=== PATIENT | female | born 1995 | race Caucasian/White ===

== ENCOUNTER → 2016-10-06 | Outpatient (CLI) | payer MEDICAID ==
--- NOTE | 2016-10-06 16:14 | Diagnostic Imaging Report ---
EXAMINATION: OB ultrasound. INDICATION: survey. FINDINGS: There is a single intrauterine . heart rate is 143 beats per minutes. The placenta is posterior. There is no placenta previa. anatomic evaluation demonstrates unremarkable appearance of the posterior fossa. No ventriculomegaly. No hydronephrosis or cystic mass in the kidneys. The stomach and bladder appear unremarkable. Suggestion of two umbilical arteries seen around the bladder suggestive of three-vessel cord is noted. The spine appear unremarkable. The cord insertion is abutting a limb with no definite abnormality. The four-chamber view is not well seen due to position. The growth parameters are: Biparietal diameter: 25 weeks 6 days Head circumference: 25 weeks 3 days Abdominal circumference: 26 weeks 3 days Femur length: 27 weeks 2 days These average at: 26 weeks and 2 days. The head circumference is at 2.7 standard deviations less than the gestational age of 27 weeks and 4 days based on provided [place] of 01/01/2017, reportedly based on an outside first trimester ultrasound. The biparietal diameter is at 1.9 standard deviations below the gestational age. IMPRESSION: 1. Followup within 1-2 weeks is recommended to reevaluate the cord insertion and the four-chamber view. 2. The head circumference measurement is at 2.7 standard deviations below the provided gestational age. Dictated by: Dictated on workstation # [id number]
== END ==
LOC: RAD 13:54
PROVIDERS: ATTEND Family Medicine
DX: O09.32 Supervision of pregnancy with insufficient antenatal care, second trimester (principal); Z3A.26 26 weeks gestation of pregnancy
CPT/HCPCS: 76805

== ENCOUNTER → 2016-11-10 | Outpatient (CLI) | payer MEDICAID ==
--- NOTE | 2016-11-10 15:35 | Diagnostic Imaging Report ---
INDICATION: Evaluation of the cord insertion and four-chamber view, not well seen on the previous exam. TECHNIQUE: Multiple real-time grayscale images were obtained over the gravid uterus. COMPARISON: 10/06/16. FINDINGS: The heart rate is 127 beats per minute. The placenta is posterior. No placenta previa. The amniotic fluid index is 8.5 cm. The four-chamber view is not well seen due to position. The cord insertion is probably normal, although adjacent limbs do not allow good evaluation. Biometrical measurements are as follows: Biparietal 7.7 cm, age 31 weeks 0 days, at -1.5 standard deviation. Head circumference 28.1 cm, age 30 weeks 6 days, at -2.4 standard deviation compared to the mean for the gestational age. This compares to -2.9 standard deviation of the head circumference measurements on 10/06/16. Abdominal circumference 27.4 cm, age 31 weeks 4 days, at 0.9 standard deviation below the mean. Femur length 6.3 cm, age 32 weeks 4 days, at 0.4 standard deviation below the mean. Sonographic estimated age: 31 weeks 4 days. Compared to gestational age of 32 weeks and 4 days based on [place] of 01/01/2017. Sonographic estimated date of delivery: 01/08/17. Estimated Weight: 1811 gm (+/- 264 gm). LMP percentile: 16%. heart rate: 127 beats per minute. number: 1 of 1. IMPRESSION: 1. Four-chamber view and cord insertion are still not well seen due to position and other factors including of relatively low normal amounts of amniotic fluid and advanced age. Reevaluation ultrasound could be considered to attempt better visualization. 2. The head circumference is at 2.4 standard deviations below the mean. Dictated by: Dictated on workstation # [id number]
== END ==
LOC: RAD 14:27
PROVIDERS: ATTEND Family Medicine
DX: Z34.83 Encounter for supervision of other normal pregnancy, third trimester (principal)
CPT/HCPCS: 76816

== ENCOUNTER → 2016-11-12 | Outpatient (CLI) | payer MEDICAID ==
--- NOTE | 2016-11-12 11:53 | Diagnostic Imaging Report ---
INDICATION: Decreased movements. COMPARISON: ultrasound 11/10/2016. DISCUSSION: Transabdominal sonographic evaluation of the gravid uterus was performed. Single live intrauterine is again demonstrated. Normal breathing, movement, posture and tone, and and normal amniotic fluid index for a normal biophysical profile score of 8/8. Amniotic fluid index measures 8.8 cm. presentation cephalic. heart rate measures 140 beats per minute. Placenta is located posteriorly with no placenta previa. IMPRESSION: 1. Normal biophysical profile score of 8/8. Dictated by: Dictated on workstation # [id number]
[2016-11-12 13:05] VITALS: BP 102/67
== END ==
LOC: RAD 11:05
PROVIDERS: ATTEND Family Medicine
DX: O36.8130 Decreased fetal movements, third trimester, not applicable or unspecified (principal); Z3A.00 Weeks of gestation of pregnancy not specified
CPT/HCPCS: 76819

== ENCOUNTER 2016-12-17 17:54 | Outpatient (CLI) | payer MEDICAID ==
[~2016-12-17] VITALS: Ht 170.2 cm; Wt 84.4 kg
[2016-12-17 18:20] VITALS: BP 102/65
--- NOTE | 2016-12-20 13:57 | Physician Query-Final Dx ---
CARLIE BURNETTE 12/20/16 1357: Clinic Account Progress/Dx Physician Query: Please give diagnosis Date of Service Dec 17, 2016 at 17:54 ASHLYN MCLEOD MD 12/24/16 1141: Clinic Account Progress/Dx DIAGNOSIS: Diagnosis 37 weeks gestation Leaking fluid, negative testing for rupture CARLIE BURNETTE Dec 20, 2016 13:57 ASHLYN MCLEOD MD Dec 24, 2016 11:41
== END 2016-12-17 19:00 | disposition home or self-care (01) ==
LOC: WSo 17:54 → LDRP 17:54 → WSo 19:00
PROVIDERS: ATTEND Family Medicine
DX: Z34.83 Encounter for supervision of other normal pregnancy, third trimester (principal); Z3A.37 37 weeks gestation of pregnancy
CPT/HCPCS: 99214

== ENCOUNTER 2016-12-23 19:37 | Outpatient (CLI) | payer MEDICAID ==
[~2016-12-23] VITALS: Ht 170.2 cm; Wt 85.3 kg
[2016-12-23 20:04] VITALS: BP 110/72
[2016-12-23 20:36] LABS: BILIRUBIN,URINE NEGATIVE (NEGATIVE); KETONES,URINE NEGATIVE (NEGATIVE); LEUKOCYTE ESTERASE ,URINE 2+ (NEGATIVE); NITRITE,URINE NEGATIVE (NEGATIVE); PH,URINE 6.5 (5-9); PROTEIN,URINE 2+ (NEGATIVE); UROBILINOGEN,URINE 1 MG/DL (NORMAL)
[2016-12-23] MEDS ORDERED: PREN-37 PO (20:47)
[2016-12-23 20:52] LABS: SQUAMOUS EPITHELIAL CELL,UR 25-50 /HPF
[2016-12-23] MEDS ORDERED: ACETAMINOPHEN 500 MG TAB (TYLENOL) PO ONE (21:45)
[2016-12-23] MEDS ORDERED: D5 LR IV SOLUTION 1,000 ML IV ONE (21:45)
--- NOTE | 2016-12-24 10:16 | Physician Query-Final Dx ---
CARLIE BURNETTE 12/24/16 1016: Clinic Account Progress/Dx Physician Query: Please give diagnosis Date of Service Dec 23, 2016 at 19:37 FABIENNE BAUTISTA MD 12/28/16 0739: Clinic Account Progress/Dx DIAGNOSIS: Diagnosis 1. IUP at 38 weeks, non labor 2. Uterine irritability CARLIE BURNETTE Dec 24, 2016 10:16 FABIENNE BAUTISTA MD Dec 28, 2016 07:39
== END 2016-12-23 23:15 | disposition home or self-care (01) ==
LOC: LDRP 19:37 → WSo 19:37
PROVIDERS: ATTEND Family Medicine
DX: O99.89 Other specified diseases and conditions complicating pregnancy, childbirth and the puerperium (principal); N85.8 Other specified noninflammatory disorders of uterus; Z3A.38 38 weeks gestation of pregnancy
CPT/HCPCS: 81000; 87088; 96360; 99214

== ENCOUNTER 2016-12-26 23:40 | Outpatient (CLI) | payer MEDICAID ==
[~2016-12-26] VITALS: Ht 170.2 cm; Wt 87.5 kg
[~2016-12-26 23:40] MED LIST: PREN-37 PO
[2016-12-26 23:56] VITALS: BP 117/68
--- NOTE | 2016-12-27 13:10 | Physician Query-Final Dx ---
CARLIE BURNETTE 12/27/16 1310: Clinic Account Progress/Dx Physician Query: Please give diagnosis Date of Service Dec 26, 2016 at 23:40 BOB LOPEZ MD 12/27/16 1908: Clinic Account Progress/Dx DIAGNOSIS: Diagnosis Term 39 week gestation Contractions YOMAIRACARLIE Dec 27, 2016 13:10 BOB LOPEZ MD Dec 27, 2016 19:08
== END 2016-12-27 01:27 | disposition home or self-care (01) ==
LOC: WSo 23:40 → LDRP 23:40 → WSo 12-27 01:27
PROVIDERS: ATTEND Family Medicine
DX: O47.1 False labor at or after 37 completed weeks of gestation (principal); Z3A.39 39 weeks gestation of pregnancy
CPT/HCPCS: 99214

== ENCOUNTER 2017-01-01 12:15 | Inpatient (IN) | payer MEDICAID ==
[2017-01-01] VITALS (25 sets, daily range): BP systolic 95–127; BP diastolic 51–87
[~2017-01-01] VITALS: Ht 170.2 cm; Wt 86.2 kg
[2017-01-01] MEDS ORDERED: D5 LR IV SOLUTION 1,000 ML IV ONE (12:23)
[2017-01-01] MEDS ORDERED: fentaNYL INJECTION 100 MCG/2 ML AMP IVP ONE (12:30)
[2017-01-01] MEDS ORDERED: D5 LR IV SOLUTION 1,000 ML IV SCH (12:40)
[2017-01-01] MEDS ORDERED: MINERAL OIL CONCENTRATE 99.9% 15 ML UDC TOP PRN (12:45)
[2017-01-01] MEDS ORDERED: SUFENTA 0.6MCG/ML BUPIVA 0.125 100 ML ONE (12:56)
[2017-01-01] MEDS ORDERED: LIDOCAINE PF 2% 5 ML (XYLOCAINE) VIAL ONE (13:03)
[2017-01-01] MEDS ORDERED: BUPIVACAINE 0.25% 30 ML (SENSORCAINE) VIAL ONE (13:03)
[2017-01-01 13:04] LABS: BASOPHILS % (AUTO) 0 % (0-10); EOSINOPHILS % (AUTO) 0 % (0-10); LYMPHOCYTES # (AUTO) 1.4 X 10^3 (1.0-4.0); LYMPHOCYTES % (AUTO) 7 % (12-44); MEAN CORPUSCULAR HEMOGLOBIN 28 PG (25-34); MEAN CORPUSCULAR HGB CONC 32 G/DL (32-36); MEAN CORPUSCULAR VOLUME 87 FL (80-99); MEAN PLATELET VOLUME 11.3 FL (7.4-10.4); MONOCYTES # (AUTO) 1.3 X 10^3 (0.0-1.0); MONOCYTES % (AUTO) 6 % (0-12); NEUTROPHILS # (AUTO) 18.4 X 10^3 (1.8-7.8); NEUTROPHILS % (AUTO) 87 % (42-75); PLATELET COUNT 222 10^3/uL (130-400); RED BLOOD COUNT 3.71 10^6/uL (4.35-5.85); RED CELL DISTRIBUTION WIDTH 12.7 % (10.0-14.5); WHITE BLOOD COUNT 21.1 10^3/uL (4.3-11.0)
[2017-01-01] MEDS ORDERED: fentaNYL INJECTION 100 MCG/2 ML AMP ONE (13:04)
[2017-01-01] MEDS ORDERED: LACTATED RINGERS 1,000 ML IV ONE ×2 (13:40)
[2017-01-01] MEDS ORDERED: NALOXONE 0.4 MG/ML 1 ML (NARCAN) VIAL IV PRN (13:45)
[2017-01-01] MEDS ORDERED: ONDANSETRON 4 MG/2 ML (SDV) Z0FRAN IV PRN (13:45)
[2017-01-01] MEDS ORDERED: EPIDURAL (SUFENTA 0.6MCG/ML BUPIVA 0.125%) 100 ML BAG EPI PRN (13:45)
[2017-01-01] MEDS ORDERED: CATHETER FLUSH 10 ML SYR IV SCH ×2 (14:00→22:00)
[2017-01-01] MEDS ORDERED: MEPIVACAINE (CARBOCAINE) 2% 50 ML VIAL ONE (14:10)
[2017-01-01] MEDS ORDERED: OXYTOCIN/NORMAL SALINE 500 ML IV ONE (14:10)
--- NOTE | 2017-01-01 14:16 | History & Physical-OB ---
OB - Chief Complaint & HPI Date/Time Date of Admission: Date of Admission: Jan 01, 2017 at 12:47 Time Seen by Provider: 14:10 Chief Complaint/History OB-Reason for Admission/Chief: Onset of Labor Hx : 2 Hx Para: 1 Expected Date of Delivery: Jan 10, 2017 Gestational Age in Weeks: 38 Gestational Age in Days: 4 Admission Nurse Assessment Rev: Yes History of Labs GBS negative Allergies and Home Medications Allergies Coded Allergies: No Known Drug Allergies (Unverified , 12/17/16) Home Medications Vit/Iron Fumarate/FA 1 Each Tablet, 1 EACH PO DAILY, (Reported) OB - History Hx of Present Care: Yes Ultrasounds: Normal mid trimester US Obstetrical Complications: None Medical Complications: None Patient Past Medical History no chronic medical problems OB - Admission Exam Physical Exam Date Seen by Provider: Jan 01, 2017 Time Seen by Provider: 14:10 HEENT: Moist Membranes Heart: Rhythm Normal Lungs: Clear Abdomen: Gravid Extremities: Normal Cervical Dilatation: 5cm (on admission) Effacement: 75% Station: -2 Membranes: Intact Accelerations: Accelerations Present Short Term Variability: Present Half-Way Variability: Average (6-25) Date/Time Contractions Began;: 0700 Intensity: Moderate Labs Laboratory Tests Test 01/01/17 12:55 Range/Units White Blood Count 21.1 H 4.3-11.0 10^3/uL Red Blood Count 3.71 L 4.35-5.85 10^6/uL Hemoglobin 10.5 L 11.5-16.0 G/DL Hematocrit 32 L 35-52 % Mean Corpuscular Volume 87 80-99 FL Mean Corpuscular Hemoglobin 28 25-34 PG Mean Corpuscular Hemoglobin Concent 32 32-36 G/DL Red Cell Distribution Width 12.7 10.0-14.5 % Platelet Count 222 130-400 10^3/uL Mean Platelet Volume 11.3 H 7.4-10.4 FL Neutrophils (%) (Auto) 87 H 42-75 % Lymphocytes (%) (Auto) 7 L 12-44 % Monocytes (%) (Auto) 6 0-12 % Eosinophils (%) (Auto) 0 0-10 % Basophils (%) (Auto) 0 0-10 % Neutrophils # (Auto) 18.4 H 1.8-7.8 X 10^3 Lymphocytes # (Auto) 1.4 1.0-4.0 X 10^3 Monocytes # (Auto) 1.3 H 0.0-1.0 X 10^3 Eosinophils # (Auto) 0.0 0.0-0.3 10^3/uL Basophils # (Auto) 0.0 0.0-0.1 10^3/uL OB - Assessment/Plan/Diagnosis Assessment Assessment: active labor (at 38w4d) Plan Plan: Other (labor management) Other Plan Patient desires epidural FABIENNE BAUTISTA MD Jan 01, 2017 14:16
[2017-01-01] MEDS ORDERED: OXYTOCIN/NORMAL SALINE 500 ML IV SCH (15:09)
--- NOTE | 2017-01-01 15:09 | OB Labor & Delivery Record ---
L&D History Date of Service Date of Service: Jan 01, 2017 History Expected Date of Delivery: Jan 10, 2017 Gestational Age in Weeks: 38 Hx : 2 Hx Para: 1 Complications Events: Routine care Operative Indications (Cesarea: N/A-Vaginal Delivery Intrapartal Events: None L&D Stage1 Stage One Onset of Labor - Date: Jan 01, 2017 Onset of Labor - Time: 07:00 Monitors and Tracing Monitor Mode: External Monitor Accelerations: Uniform Monitor Decelerations: Variable Mine Wedge [place]yer Variability: Average (6-10) Short Term Variability: Present Presentation: Vertex Signs of Distress by FHT Signs of Distress no Rupture of Membranes Spontaneous Ruture of Membrane: No Amniotic Membrane Rupture Time: 14:15 Amniotic Membrane Fluid Desc.: Clear Induction/Anesthesia Epidural Cath Placement - Time: 13:30 L&D Stage2 Stage Two Stage II Date: Jan 01, 2017 Stage II Time: 14:47 Monitors and Tracing Monitor Mode: Internal Monitor Accelerations: Uniform Monitor Decelerations: Variable Group Home Variability: Average (6-10) Short Term Variability: Present Position: Left Occiput Anterior Presentation: Vertex Signs of Distress by FHT Signs of Distress no Cord Descript/Complications Cord Vessel Description: 3 Vessels Delivery Type Delivery Method: Spontaneous Vaginal Anterior Shoulder: Left Episiotomy/Perineal Laceration Laceraction(s)/Extensions: No Condition of Infant Delivery 1 minute Comment: 8 5 minute Comment: 9 Condition of Infant Condition of Infant: Living Exam: No Observed Abnormalities Resuscitation Resuscitation: N/A - Spontaneous Resp L&D Stage3 Stage Three Stage III Date: Jan 01, 2017 Stage III Time: 14:49 Pictocin Pitocin ml/hr: 125 Placenta Delivery Placenta Delivery: Spontaneous Delivery Summary Summary Vaginal blood loss >500ml: No 150cc Condition of Delivery Examined: Cervix Examined Post Hemorrhage: No FABIENNE BAUTISTA MD Jan 01, 2017 15:09
[2017-01-01] MEDS ORDERED: WITCH HAZEL(TUCKS) 40 EA JAR TOP PRN (15:15)
[2017-01-01] MEDS ORDERED: HYDROcodone/APAP 5 MG/325 MG (LORTAB) TAB PO PRN (15:15)
[2017-01-01] MEDS ORDERED: TETANUS,DIPTH,PERTUSS P/F (BOOSTRIX) 0.5 ML VIAL IM ONE (15:15)
[2017-01-01] MEDS ORDERED: BENZOCAINE/MENTHOL (DERMOPLAST) 56 ML CAN TP PRN (15:15)
[2017-01-01] MEDS ORDERED: MEASLES,MUMPS,RUBELLA 1 EA INJ SQ ONE (15:15)
[2017-01-01] MEDS: IBUPROFEN 600 MG (MOTRIN) TAB PO SCH ×2 (15:59→21:43)
[2017-01-02 04:20] VITALS: BP 112/65
[2017-01-02] MEDS: IBUPROFEN 600 MG (MOTRIN) TAB PO SCH ×3 (04:21→17:20)
[2017-01-02] MEDS ORDERED: PRENATAL VITAMIN 1 EA TAB PO SCH (07:00)
[2017-01-02 07:20] LABS: BASOPHILS % (AUTO) 0 % (0-10); EOSINOPHILS # (AUTO) 0.1 10^3/uL (0.0-0.3); EOSINOPHILS % (AUTO) 1 % (0-10); LYMPHOCYTES % (AUTO) 14 % (12-44); MEAN CORPUSCULAR HEMOGLOBIN 29 PG (25-34); MEAN CORPUSCULAR HGB CONC 33 G/DL (32-36); MEAN CORPUSCULAR VOLUME 88 FL (80-99); MEAN PLATELET VOLUME 11.8 FL (7.4-10.4); MONOCYTES # (AUTO) 1.6 X 10^3 (0.0-1.0); MONOCYTES % (AUTO) 7 % (0-12); NEUTROPHILS # (AUTO) 16.7 X 10^3 (1.8-7.8); NEUTROPHILS % (AUTO) 78 % (42-75); PLATELET COUNT 219 10^3/uL (130-400); RED BLOOD COUNT 3.47 10^6/uL (4.35-5.85); RED CELL DISTRIBUTION WIDTH 12.9 % (10.0-14.5); WHITE BLOOD COUNT 21.4 10^3/uL (4.3-11.0)
[2017-01-02 09:00] VITALS: BP 101/62
--- NOTE | 2017-01-02 09:35 | Progress Note (SOAP) ---
Subjective Subjective/Events-last exam Patient has no complaints. No significant cramping and vaginal bleeding has slowed way down. Review of Systems Date Seen by Provider: Jan 02, 2017 Time Seen by Provider: 09:00 Objective Exam Last Set of Vital Signs Vital Signs Date Time Temp Pulse Resp B/P (MAP) Pulse Ox O2 Delivery O2 Flow Rate FiO2 01/02/17 09:00 97.4 67 18 101/62 98 Room Air Capillary Refill : I&O Intake and Output 01/02/17 00:00 Intake Total 1900 ml Balance 1900 ml Intake IV Total 1900 ml General: No Acute Distress Lungs: Clear to Auscultation Heart: Regular Rate Abdomen: Soft (with uterus firm) Results/Procedures Lab Laboratory Tests 01/01/17 12:55: White Blood Count 21.1H, Red Blood Count 3.71L, Hemoglobin 10.5L, Hematocrit 32L , Mean Corpuscular Volume 87, Mean Corpuscular Hemoglobin 28, Mean Corpuscular Hemoglobin Concent 32, Red Cell Distribution Width 12.7, Platelet Count 222, Mean Platelet Volume 11.3H, Neutrophils (%) (Auto) 87H, Lymphocytes (%) (Auto) 7L, Monocytes (%) (Auto) 6, Eosinophils (%) (Auto) 0, Basophils (%) (Auto) 0, Neutrophils # (Auto) 18.4H, Lymphocytes # (Auto) 1.4, Monocytes # (Auto) 1.3H, Eosinophils # (Auto) 0.0, Basophils # (Auto) 0.0 01/02/17 07:10: White Blood Count 21.4H, Red Blood Count 3.47L, Hemoglobin 10.0L, Hematocrit 31L , Mean Corpuscular Volume 88, Mean Corpuscular Hemoglobin 29, Mean Corpuscular Hemoglobin Concent 33, Red Cell Distribution Width 12.9, Platelet Count 219, Mean Platelet Volume 11.8H, Neutrophils (%) (Auto) 78H, Lymphocytes (%) (Auto) 14, Monocytes (%) (Auto) 7, Eosinophils (%) (Auto) 1, Basophils (%) (Auto) 0, Neutrophils # (Auto) 16.7H, Lymphocytes # (Auto) 3.0, Monocytes # (Auto) 1.6H, Eosinophils # (Auto) 0.1, Basophils # (Auto) 0.0 Assessment/Plan Assessment/Plan Plan 1. S/P day 1 -doing well -routine PP care orders continue Diagnosis/Problems: Clinical Quality Measures DVT/VTE Risk/Contraindication: Risk Factor Score Per Nursin RFS Level Per Nursing on Admit: 2=Moderate FABIENNE BAUTISTA MD Jan 02, 2017 09:35
[2017-01-02 13:15] VITALS: BP 99/61
--- NOTE | 2017-01-02 15:48 | Anesthesia-Regional Post-Op ---
Regional Patient Condition Mental Status: Alert, Oriented x3 Circulation: Same as Pre-Op Headache: Absent Sensation: Full Recovery Motor Block: Absent Post Op Complications Complications None Follow Up Care/Instructions Patient Instructions None needed. Anesthesia/Patient Condition Patient is doing well, stable vital signs, and happy with success of epidural block. Patient denies backache or headache, but does complain of occasional numbness in her legs. I assured patient it should continue to resolve. We will be available for further consultation if the patient continues to experience problems. MACKENZIE DODD KNIT TUBING DYER Jan 02, 2017 15:48
[2017-01-02] MEDS ORDERED: IBUP-1773 PO (17:14)
[2017-01-02 17:15] VITALS: BP 113/67
--- NOTE | 2017-01-03 07:42 | Discharge Summary ---
Diagnosis/Chief Complaint Date of Admission Jan 01, 2017 at 12:47 Date of Discharge Jan 02, 2017 at 17:35 Admission Diagnosis Admission Diagnosis 1. Intrauterine at 38 weeks 4 days gestation Discharge Diagnosis 1. Intrauterine at 38 weeks 4 days gestation Chief Complaint/HPI Chief Complaint/HPI 1-year-old 2 now term to L2 female who initially presents to labor and delivery during the afternoon of January 01, 2017 in active labor. Patient reports contractions started upon awakening in the morning of January 01, 2017. Her EDC is noted to be January 10, 2017 based upon mid trimester ultrasound. She denied any rupture membranes upon presentation. Discharge Summary-OBS Procedures 1. Epidural per anesthesia 2. Spontaneous vaginal delivery Discharge Physical Examination Allergies: Coded Allergies: latex (Verified Allergy, Unknown, 01/01/17) Uncoded Allergies: peanut butter (Allergy, Unknown, 01/01/17) Vitals & I&Os Vital Sign - Last 12Hours Date Time Temp Pulse Resp B/P (MAP) Pulse Ox O2 Delivery O2 Flow Rate FiO2 01/02/17 17:15 97.8 64 18 113/67 98 Room Air General Appearance: No Acute Distress Respiratory: Clear to Auscultation Cardiovascular: Regular Rate Abdominal: Soft (with uterus firm) Hospital Course Upon presentation and once patient was noted to be in active labor she did request epidural per anesthesia. Patient received epidural per anesthesia and tolerated well. Strip remained reactive throughout the course of labor. She ultimately underwent amniotomy with clear fluid noted when she was 7 cm dilated. patient quickly went on to completion. Ultimately she went on to deliver a term viable male with Apgars of 8 at 1 minute and 9 at 5 minutes. see labor and delivery summary for full details. Following delivery patient underwent routine care orders. She had no problems during the remainder of her hospital stay. Her post delivery hemoglobin was 10.0 She was ready for dismissal during the afternoon of December. she will follow up with Dr. Bautista in 6 weeks at [facility]. She was recommended to utilize ibuprofen for any cramping. Discharge Instructions to patient/family Please see electonic discharge instructions given to patient. Discharge Medications Reviewed and agree with Discharge Medication list on patient's Discharge Instruction sheet Clinical Quality Measures DVT/VTE Risk/Contraindication: Risk Factor Score Per Nursin RFS Level Per Nursing on Admit: 2=Moderate FABIENNE BAUTISTA MD Jan 03, 2017 07:42
== END 2017-01-02 17:35 | disposition home or self-care (01) | DRG 775 ==
LOC: LDRP 12:15 → WSo 12:15 → LDRP 12:47
PROVIDERS: ADMIT Family Medicine; ATTEND Family Medicine
PROC: 10E0XZZ Delivery of Products of Conception, External Approach (ICD-10-PCS; principal; 2017-01-01)
DX: O80 Encounter for full-term uncomplicated delivery (principal); Z37.0 Single live birth; Z3A.38 38 weeks gestation of pregnancy
CPT/HCPCS: 36415; 85025; 86850; 86900; 86901; 99212

== ENCOUNTER 2018-02-11 19:17 | Emergency (ER) | payer MEDICAID ==
[~2018-02-11] VITALS: Ht 170.2 cm; Wt 86.2 kg
[~2018-02-11 19:17] MED LIST changes: +IBUP-1773 PO
[2018-02-11 19:50] LABS: BILIRUBIN,URINE NEGATIVE (NEGATIVE); CLARITY,URINE CLEAR; COLOR,URINE YELLOW; GLUCOSE, URINE (UA) NEGATIVE (NEGATIVE); KETONES,URINE NEGATIVE (NEGATIVE); LEUKOCYTE ESTERASE ,URINE 3+ (NEGATIVE); NITRITE,URINE NEGATIVE (NEGATIVE); PH,URINE 8 (5-9); PROTEIN,URINE NEGATIVE (NEGATIVE); UROBILINOGEN,URINE NORMAL (NORMAL)
[2018-02-11 19:54] LABS: BASOPHILS % (AUTO) 0 % (0-10); EOSINOPHILS # (AUTO) 0.2 10^3/uL (0.0-0.3); EOSINOPHILS % (AUTO) 2 % (0-10); HEMATOCRIT 41 % (35-52); HEMOGLOBIN 14.2 G/DL (11.5-16.0); LYMPHOCYTES # (AUTO) 2.4 X 10^3 (1.0-4.0); LYMPHOCYTES % (AUTO) 26 % (12-44); MEAN CORPUSCULAR HEMOGLOBIN 31 PG (25-34); MEAN CORPUSCULAR HGB CONC 35 G/DL (32-36); MEAN CORPUSCULAR VOLUME 89 FL (80-99); MONOCYTES # (AUTO) 0.7 X 10^3 (0.0-1.0); MONOCYTES % (AUTO) 7 % (0-12); NEUTROPHILS # (AUTO) 6.1 X 10^3 (1.8-7.8); NEUTROPHILS % (AUTO) 65 % (42-75); PLATELET COUNT 252 10^3/uL (130-400); RED BLOOD COUNT 4.55 10^6/uL (4.35-5.85); RED CELL DISTRIBUTION WIDTH 13.2 % (10.0-14.5); WHITE BLOOD COUNT 9.4 10^3/uL (4.3-11.0)
--- NOTE | 2018-02-11 19:54 | ED GU-Female ---
General Chief Complaint: Abdominal/GI Problems Stated Complaint: LLQ ABD PN Source: patient Exam Limitations: no limitations History of Present Illness Date Seen by Provider: Feb 11, 2018 Time Seen by Provider: 19:53 Initial Comments To ER with left lower quadrant abdominal pain for about the past 4 days. No fevers but she has had chills. Nausea but no vomiting. No vaginal discharge. No bowel changes. Timing/Duration: week, getting worse Severity/Quality: moderate Location: LLQ Radiation: none Activities at Onset: none Associated Symptoms: abdominal pain, fever/chills, nausea/vomiting Allergies and Home Medications Allergies Coded Allergies: latex (Verified Allergy, Unknown, 01/01/17) Uncoded Allergies: peanut butter (Allergy, Unknown, 01/01/17) Patient Home Medication List Home Medication List Reviewed: Yes Review of Systems Review of Systems Constitutional: see HPI EENTM: see HPI Respiratory: no symptoms reported Cardiovascular: no symptoms reported Genitourinary: see HPI, flank pain Musculoskeletal: no symptoms reported Skin: no symptoms reported Psychiatric/Neurological: No Symptoms Reported Past Beygqfm-Lzrxky-Delufy Hx Patient Social History Type Used: Cigarettes Recent Foreign Travel: No Contact w/Someone Who Travel: No Recent Hopitalizations: No Immunizations Up To Date PED Vaccines UTD: Yes Seasonal Allergies Seasonal Allergies: No Past Medical History Surgeries: No Respiratory: No Cardiac: No Neurological: No Female Reproductive Disorders: Denies Sexually Transmitted Disease: No HIV/AIDS: No Genitourinary: No Gastrointestinal: No Musculoskeletal: No Endocrine: No HEENT: No Loss of Vision: Denies Hearing Impairment: Denies Cancer: No Psychosocial: No Integumentary: No Blood Disorders: No Adverse Reaction/Blood Tranf: No Family Medical History Arthritis MATERNAL GRANDMOTHER Asthma MATERNAL GRANDMOTHER Completed stroke MATERNAL GRANDFATHER Diabetes mellitus MATERNAL GRANDMOTHER MATERNAL GRANDFATHER (IDDM TYPE 2) Drug abuse 19 FATHER Hypertension MATERNAL GRANDMOTHER MATERNAL GRANDFATHER Psychosocial problem G8 BROTHER (BIPOLAR) SIDS (sudden syndrome) G8 BROTHER (1 MONTH OLD) MATERNAL COUSIN (MATERNAL COUSIN HAD A CHILD OF SIDS (6 WEEKS OLD)) Physical Exam Vital Signs Vital Signs - First Documented 02/11/18 19:43 Temp 97.9 Pulse 63 Resp 17 B/P (MAP) 121/80 (94) Capillary Refill : Height, Weight, BMI Height: 5'7.00" Weight: 190lbs. 0.0oz. 86.765077kh; 29.8 BMI Method: General Appearance: WD/WN, no apparent distress HEENT: PERRL/EOMI, normal ENT inspection Neck: non-tender, full range of motion Respiratory: no respiratory distress, no accessory muscle use Gastrointestinal: normal bowel sounds, soft, tenderness (left lower quadrant) Extremities: normal range of motion, non-tender Neurologic/Psychiatric: alert, normal mood/affect, oriented x 3 Skin: normal color, warm/dry Progress/Results/Core Measures Suspected Sepsis SIRS Temperature: Pulse: Respiratory Rate: Laboratory Tests 02/11/18 19:43: White Blood Count 9.4 Blood Pressure / Mean: Laboratory Tests 02/11/18 19:43: Creatinine 0.72, Platelet Count 252 Results/Orders Lab Results Laboratory Tests Test 02/11/18 19:43 Range/Units White Blood Count 9.4 4.3-11.0 10^3/uL Red Blood Count 4.55 4.35-5.85 10^6/uL Hemoglobin 14.2 11.5-16.0 G/DL Hematocrit 41 35-52 % Mean Corpuscular Volume 89 80-99 FL Mean Corpuscular Hemoglobin 31 25-34 PG Mean Corpuscular Hemoglobin Concent 35 32-36 G/DL Red Cell Distribution Width 13.2 10.0-14.5 % Platelet Count 252 130-400 10^3/uL Mean Platelet Volume 12.0 H 7.4-10.4 FL Neutrophils (%) (Auto) 65 42-75 % Lymphocytes (%) (Auto) 26 12-44 % Monocytes (%) (Auto) 7 0-12 % Eosinophils (%) (Auto) 2 0-10 % Basophils (%) (Auto) 0 0-10 % Neutrophils # (Auto) 6.1 1.8-7.8 X 10^3 Lymphocytes # (Auto) 2.4 1.0-4.0 X 10^3 Monocytes # (Auto) 0.7 0.0-1.0 X 10^3 Eosinophils # (Auto) 0.2 0.0-0.3 10^3/uL Basophils # (Auto) 0.0 0.0-0.1 10^3/uL Urine Color YELLOW Urine Clarity CLEAR Urine pH 8 5-9 Urine Specific [place] 1.015 L 1.016-1.022 Urine Protein NEGATIVE NEGATIVE Urine Glucose (UA) NEGATIVE NEGATIVE Urine Ketones NEGATIVE NEGATIVE Urine Nitrite NEGATIVE NEGATIVE Urine Bilirubin NEGATIVE NEGATIVE Urine Urobilinogen NORMAL NORMAL MG/DL Urine Leukocyte Esterase 3+ H NEGATIVE Urine RBC (Auto) NEGATIVE NEGATIVE Urine RBC NONE /HPF Urine WBC 5-10 H /HPF Urine Squamous Epithelial Cells 5-10 /HPF Urine Crystals PRESENT H /LPF Urine Amorphous Sediment FEW PERFECTO PHOSPHATE H /LPF Urine Bacteria FEW H /HPF Urine Casts NONE /LPF Urine Mucus NEGATIVE /LPF Urine Culture Indicated YES Sodium Level 139 135-145 MMOL/L Potassium Level 3.4 L 3.6-5.0 MMOL/L Chloride Level 108 H 98-107 MMOL/L Carbon Dioxide Level 22 21-32 MMOL/L Anion Gap 9 5-14 MMOL/L Blood Urea Nitrogen 8 7-18 MG/DL Creatinine 0.72 0.60-1.30 MG/DL Estimat Glomerular Filtration Rate > 60 BUN/Creatinine Ratio 11 Glucose Level 72 70-105 MG/DL Calcium Level 9.4 8.5-10.1 MG/DL My Orders Orders - MARTHA CASTRO APRN Cbc With Automated Diff (02/11/18 19:39) Basic Metabolic Panel (02/11/18 19:39) Ua Culture If Indicated (02/11/18 19:39) Iv Heplock-Insert (Order) (02/11/18 19:39) Urine Bedside (02/11/18 19:39) Ketorolac Injection (Toradol Injection) (02/11/18 20:00) Ns Iv 1000 Ml (Sodium Chloride 0.9%) (02/11/18 20:00) Ketorolac Injection (Toradol Injection) (02/11/18 20:00) Urine Culture (02/11/18 19:43) Us Non Ob Pelvis Comp/Transvag (02/11/18 20:18) Rx-Hydrocodone/Apap 5-325 Mg (Rx-Vicodin (02/11/18 21:15) Medications Given in ED Current Medications Medications Dose Ordered Sig/Bee Route Start Time Stop Time Status Last Admin Dose Admin Ketorolac Tromethamine 15 mg ONCE ONCE IVP 02/11/18 20:00 02/11/18 20:01 DC 02/11/18 20:04 15 MG Vital Signs/I&O 02/11/18 19:43 Temp 97.9 Pulse 63 Resp 17 B/P (MAP) 121/80 (94) Capillary Refill : Departure Communication (Admissions) oven technician reports a 4 cm complex left ovarian cyst with no torsion. Impression Primary Impression: LLQ abdominal pain Additional Impression: Urinary tract infection Disposition: HOME, SELF-CARE Condition: Stable Departure-Patient Inst. Decision time for Depature: 21:08 Referrals: FABIENNE BAUTISTA MD (PCP/Family) Primary Care Physician Patient Instructions: Ovarian Cyst (DC), Urinary Tract Infection, Adult (DC) Add. Discharge Instructions: 1. Medication as directed 2. Follow-up with your doctor next week.You will want a repeat ultrasound of your ovarian cyst couple of weeks to months. Follow-up with your primary care provider to arrange this. 3. Return to ER for any fevers worsening pain or other concerns. 4. Once she run out of the pain medication that we send you home with, use simple Tylenol and Motrin for pain control. Scripts Sulfamethoxazole/Trimethoprim (Bactrim Ds Tablet) 1 Each Tablet 1 EACH PO BID, #6 TAB Prov: MARTHA CASTRO APRN 02/11/18 MARTHA CASTRO APRN Feb 11, 2018 19:54
[2018-02-11] MEDS ORDERED: KETOROLAC 30 MG/ML VIAL IVP ONE (20:00)
[2018-02-11] MEDS ORDERED: NS IV 1000 ML 1,000 ML IV SCH (20:00)
[2018-02-11] MEDS ORDERED: KETOROLAC 15 MG/ML VIAL IVP PRN (20:00)
[2018-02-11 20:14] LABS: AMORPHOUS SEDIMENT,UR FEW AMOR PHOSPHATE /LPF; BACTERIA,URINE FEW /HPF; BUN/CREATININE RATIO 11; CALCIUM 9.4 MG/DL (8.5-10.1); CARBON DIOXIDE 22 MMOL/L (21-32); CHLORIDE 108 MMOL/L (98-107); CREATININE SERUM 0.72 MG/DL (0.60-1.30); GFR ESTIMATED > 60; GLUCOSE 72 MG/DL (70-105); POTASSIUM 3.4 MMOL/L (3.6-5.0); SODIUM 139 MMOL/L (135-145)
[2018-02-11] MEDS ORDERED: SULF1TAB35 PO (21:15)
[2018-02-11] MEDS ORDERED: TRIM/SULFAMETH 160/800 (SEPTRA DS) TAB PO ONE (21:15)
[2018-02-11] MEDS ORDERED: RX-HYDROCODONE/APAP 5/325 MG #4 TAB PK PO PRN (21:15)
[2018-02-11 21:30] VITALS: BP 121/80
--- NOTE | 2018-02-11 21:51 | Diagnostic Imaging Report ---
EXAM: US non OB pelvis comp/transvag. INDICATION: Left lower quadrant pain. COMPARISON: None. FINDINGS: Normal echogenicity of the uterus which measures 8.2 x 4.7 x 4.0 cm. Normal-appearing endometrium measuring up 1.2 cm. Left ovary measures 4.7 x 4.3 x 4.4 cm. The left ovary contains a cyst measuring up to 4.6 cm with laciform internal echoes. There is a small amount of free fluid adjacent to the left ovary. There is normal flow by color Doppler within the left ovary. The right ovary is obscured by bowel gas. IMPRESSION: 1. Complex left ovarian cyst measuring up to 4.6 cm containing internal echoes consistent with a hemorrhagic cyst. There is also a small amount of free fluid adjacent to the left ovary. 2. The right ovary is not identified due to overlying bowel gas. Dictated by: Dictated on workstation # [id number]
== END 2018-02-11 21:32 | disposition home or self-care (01) ==
LOC: EDUNIT# 19:17 → ER 19:19
DX: N39.0 Urinary tract infection, site not specified (principal); R10.32 Left lower quadrant pain; Z91.040 Latex allergy status
CPT/HCPCS: 36415; 76830; 76856; 80048; 81000; 84703; 85025; 87088

== ENCOUNTER 2021-09-26 16:07 | Emergency (ER) | payer SELFPAY ==
[~2021-09-26] VITALS: Ht 170 cm; Wt 72.0 kg
[~2021-09-26 16:07] MED LIST changes: +SULF1TAB38 PO
[2021-09-26 16:34] LABS: BASOPHILS # (AUTO) 0.1 10^3/uL (0.0-0.1); BASOPHILS % (AUTO) 1 % (0-10); EOSINOPHILS # (AUTO) 0.2 10^3/uL (0.0-0.3); EOSINOPHILS % (AUTO) 2 % (0-10); HEMATOCRIT 45 % (35-52); HEMOGLOBIN 15.4 g/dL (11.5-16.0); LYMPHOCYTES % (AUTO) 32 % (12-44); MEAN CORPUSCULAR HEMOGLOBIN 33 pg (25-34); MEAN CORPUSCULAR HGB CONC 35 g/dL (32-36); MEAN CORPUSCULAR VOLUME 94 fL (80-99); MONOCYTES # (AUTO) 0.7 10^3/uL (0.0-1.0); MONOCYTES % (AUTO) 8 % (0-12); NEUTROPHILS # (AUTO) 5.4 10^3/uL (1.8-7.8); NEUTROPHILS % (AUTO) 57 % (42-75); PLATELET COUNT 256 10^3/uL (130-400); WHITE BLOOD COUNT 9.4 10^3/uL (4.3-11.0)
[2021-09-26 16:38] LABS: BILIRUBIN,URINE NEGATIVE (NEGATIVE); CLARITY,URINE SL CLOUDY; COLOR,URINE YELLOW; GLUCOSE, URINE (UA) NEGATIVE (NEGATIVE); KETONES,URINE TRACE (NEGATIVE); LEUKOCYTE ESTERASE ,URINE 2+ (NEGATIVE); NITRITE,URINE POSITIVE (NEGATIVE); PH,URINE 6.5 (5-9); PROTEIN,URINE 1+ (NEGATIVE)
[2021-09-26 16:48] LABS: ALBUMIN 4.3 GM/DL (3.2-4.5); BACTERIA,URINE FEW /HPF; WBC,URINE 25-50 /HPF
[2021-09-26 16:49] LABS: POTASSIUM 4.2 MMOL/L (3.6-5.0)
[2021-09-26 16:51] LABS: TOTAL PROTEIN 6.9 GM/DL (6.4-8.2)
[2021-09-26 16:53] LABS: BILIRUBIN,TOTAL 0.4 MG/DL (0.1-1.0)
[2021-09-26 16:55] LABS: CREATININE SERUM 0.95 MG/DL (0.60-1.30)
[2021-09-26] MEDS ORDERED: cefTRIAXone 1 GM PRE-MIX 50 ML IV STA (17:04)
[2021-09-26] MEDS ORDERED: LACTATED RINGERS 1,000 ML IV ONE (17:15)
[2021-09-26] MEDS ORDERED: fentaNYL INJ 100 MCG/2 ML AMP IVP ONE (17:45)
[2021-09-26] MEDS ORDERED: NS 100 ML (IVPB) BAG IV ONE (18:00)
[2021-09-26] MEDS ORDERED: HOLD METFORMIN - RECEIVED CONTRAST 20 ML VIAL IV SCH (18:00)
[2021-09-26] MEDS ORDERED: IOHEXOL 350 MG/ML 100 ML (OMNIPAQUE 350) VIAL IV ONE (18:00)
--- NOTE | 2021-09-26 18:14 | Diagnostic Imaging Report ---
EXAMINATION: CT abdomen and pelvis with intravenous contrast. TECHNIQUE: Multiple contiguous axial images were obtained through the abdomen and pelvis after the uneventful administration of intravenous contrast. All CT scans use one or more of the following dose optimizing techniques: automated exposure control, MA and/or KvP adjustment based on patient size and exam type or iterative reconstruction. HISTORY: Right lower quadrant pain. COMPARISON: None available. FINDINGS: Limited views of the lower thorax are unremarkable. The liver is normal without focal lesion. There is no biliary ductal dilation. Gallbladder is normal. Pancreas is normal. Spleen is normal. Adrenal glands are normal. The kidneys are normal. There is no hydronephrosis. Urinary bladder is normal. Bowel is normal in caliber without obstruction or inflammation. The appendix is normal. No free fluid or air. No abdominal or pelvic lymphadenopathy. Aorta is normal in caliber without aneurysm. There are no suspicious osseus lesions. IMPRESSION: No acute abnormality, normal appendix. Dictated by: Dictated on workstation # [id number]
[2021-09-26] MEDS ORDERED: KETOROLAC 30 MG/ML VIAL IVP ONE (19:45)
[2021-09-26] MEDS ORDERED: CEPH500T PO (19:46)
[2021-09-26] MEDS ORDERED: ONDA4TAB11 SL (19:46)
--- NOTE | 2021-09-26 19:46 | ED Abdominal Pain ---
General Chief Complaint: Abdominal/GI Problems Stated Complaint: ABD PAIN Nursing Triage Note: PT TO [facility] WITH CC OF ABD PAIN AND VOMITING SINCE THIS A.M. STATES SHE COULD BE . Source of Information: Patient Exam Limitations: No Limitations History of Present Illness Date Seen by Provider: Sep 26, 2021 Time Seen by Provider: 16:27 Allergies and Home Medications Allergies Coded Allergies: latex (Verified Allergy, Unknown, 01/01/17) Uncoded Allergies: peanut butter (Allergy, Unknown, 01/01/17) Patient Home Medication List Cephalexin (Cephalexin) 500 Mg Tablet, 500 MG PO TID Prescribed by: SAMEER LEAL on 09/26/211945 Ondansetron (Ondansetron Odt) 4 Mg Tab.rapdis, 4 MG SL Q4H PRN for NAUSEA/VOMITING Prescribed by: SAMEER LEAL on 09/26/211945 Sulfamethoxazole/Trimethoprim (Bactrim Ds Tablet) 1 Each Tablet, 1 EACH PO BID Prescribed by: MARTHA CASTRO on 02/11/182114 Past Urjxnfr-Elprsh-Yridlb Hx Patient Social History Tobacco Use?: Yes Tobacco type used: Cigarettes Smoking Status: Current Everyday Smoker Substance use?: Yes Substance type: Marijuana Alcohol Use?: No Immunizations Up To Date Tetanus Booster (TDap): Unknown PED Vaccines UTD: Yes Seasonal Allergies Seasonal Allergies: No Past Medical History Surgeries: No Respiratory: No Cardiac: No Neurological: No Last Menstrual Period: Aug 25, 2021 Female Reproductive Disorders: Denies Sexually Transmitted Disease: No HIV/AIDS: No Genitourinary: No Gastrointestinal: No Musculoskeletal: No Endocrine: No HEENT: No Loss of Vision: Denies Hearing Impairment: Denies Cancer: No Psychosocial: Yes Anxiety, Depression Integumentary: No Blood Disorders: No Adverse Reaction/Blood Tranf: No Family Medical History Arthritis MATERNAL GRANDMOTHER Asthma MATERNAL GRANDMOTHER Completed stroke MATERNAL GRANDFATHER Diabetes mellitus MATERNAL GRANDMOTHER MATERNAL GRANDFATHER (IDDM TYPE 2) Drug abuse 19 FATHER Hypertension MATERNAL GRANDMOTHER MATERNAL GRANDFATHER Psychosocial problem G8 BROTHER (BIPOLAR) SIDS (sudden infant syndrome) G8 BROTHER (1 MONTH OLD) MATERNAL COUSIN (MATERNAL COUSIN HAD A CHILD OF SIDS (6 WEEKS OLD)) Physical Exam Vital Signs Vital Signs - First Documented 09/26/21 16:11 Temp 36.0 Pulse 75 Resp 18 B/P (MAP) 117/93 (101) Pulse Ox 98 O2 Delivery Room Air Capillary Refill : Less Than 3 Seconds Height/Weight/BMI Height: 5'7.00" Weight: 190lbs. 0oz. 86.485290wr; 24.00 BMI Method:Stated Progress/Results/Core Measures Results/Orders Lab Results Laboratory Tests Test 09/26/21 16:15 Range/Units White Blood Count 9.4 4.3-11.0 10^3/uL Red Blood Count 4.72 3.80-5.11 10^6/uL Hemoglobin 15.4 11.5-16.0 g/dL Hematocrit 45 35-52 % Mean Corpuscular Volume 94 80-99 fL Mean Corpuscular Hemoglobin 33 25-34 pg Mean Corpuscular Hemoglobin Concent 35 32-36 g/dL Red Cell Distribution Width 12.4 10.0-14.5 % Platelet Count 256 130-400 10^3/uL Mean Platelet Volume 12.0 9.0-12.2 fL Immature Granulocyte % (Auto) 0 % Neutrophils (%) (Auto) 57 42-75 % Lymphocytes (%) (Auto) 32 12-44 % Monocytes (%) (Auto) 8 0-12 % Eosinophils (%) (Auto) 2 0-10 % Basophils (%) (Auto) 1 0-10 % Neutrophils # (Auto) 5.4 1.8-7.8 10^3/uL Lymphocytes # (Auto) 3.0 1.0-4.0 10^3/uL Monocytes # (Auto) 0.7 0.0-1.0 10^3/uL Eosinophils # (Auto) 0.2 0.0-0.3 10^3/uL Basophils # (Auto) 0.1 0.0-0.1 10^3/uL Immature Granulocyte # (Auto) 0.0 0.0-0.1 10^3/uL Urine Color YELLOW Urine Clarity SL CLOUDY Urine pH 6.5 5-9 Urine Specific [place] 1.025 H 1.016-1.022 Urine Protein 1+ H NEGATIVE Urine Glucose (UA) NEGATIVE NEGATIVE Urine Ketones TRACE H NEGATIVE Urine Nitrite POSITIVE H NEGATIVE Urine Bilirubin NEGATIVE NEGATIVE Urine Urobilinogen 1.0 < = 1.0 MG/DL Urine Leukocyte Esterase 2+ H NEGATIVE Urine RBC (Auto) NEGATIVE NEGATIVE Urine RBC NONE /HPF Urine WBC 25-50 H /HPF Urine Squamous Epithelial Cells 10-25 H /HPF Urine Crystals NONE /LPF Urine Bacteria FEW H /HPF Urine Casts NONE /LPF Urine Mucus NEGATIVE /LPF Urine Culture Indicated YES Sodium Level 140 135-145 MMOL/L Potassium Level 4.2 3.6-5.0 MMOL/L Chloride Level 106 98-107 MMOL/L Carbon Dioxide Level 21 21-32 MMOL/L Anion Gap 13 5-14 MMOL/L Blood Urea Nitrogen 11 7-18 MG/DL Creatinine 0.95 0.60-1.30 MG/DL Estimat Glomerular Filtration Rate 84 BUN/Creatinine Ratio 12 Glucose Level 94 70-105 MG/DL Calcium Level 9.0 8.5-10.1 MG/DL Corrected Calcium 8.8 8.5-10.1 MG/DL Total Bilirubin 0.4 0.1-1.0 MG/DL Aspartate Amino Transf (AST/SGOT) 14 5-34 U/L Alanine Aminotransferase (ALT/SGPT) 10 0-55 U/L Alkaline Phosphatase 58 40-136 U/L C-Reactive Protein High Sensitivity 0.19 0.00-0.50 MG/DL Total Protein 6.9 6.4-8.2 GM/DL Albumin 4.3 3.2-4.5 GM/DL Lipase 23 8-78 U/L Serum Test, Qualitative NEGATIVE NEGATIVE My Orders Orders - SAMEER PUGH MD Cbc With Automated Diff (09/26/21 16:27) Comprehensive Metabolic Panel (09/26/21 16:27) Hs C Reactive Protein (09/26/21 16:27) Hcg,Qualitative Serum (09/26/21 16:27) Lipase (09/26/21 16:27) Ua Culture If Indicated (09/26/21 16:27) Ed Iv/Invasive Line Start (09/26/21 16:27) Urine Culture (09/26/21 16:15) Lactated Ringers (Lr 1000 Ml Iv Solution (09/26/21 17:15) Ceftriaxone 1 Gm Pre-Mix (Rocephin 1 Gm (09/26/21 17:04) Fentanyl Inj (Sublimaze Injection) (09/26/21 17:45) Ct Abd/Pelv W (Appendicitis) (09/26/21 17:39) Iohexol Injection (Omnipaque 350 Mg/Ml 1 (09/26/21 18:00) Received Contrast (Hold Metformin- Contr (09/26/21 18:00) Ns (Ivpb) (Sodium Chloride 0.9% Ivpb Bag (09/26/21 18:00) Ketorolac Injection (Toradol Injection) (09/26/21 19:45) Medications Given in ED Current Medications Medications Dose Ordered Sig/Bee Route Start Time Stop Time Status Last Admin Dose Admin Fentanyl Citrate 50 mcg ONCE ONCE IVP 09/26/21 17:45 09/26/21 17:46 DC 09/26/21 18:15 50 MCG Iohexol 100 ml ONCE ONCE IV 09/26/21 18:00 09/26/21 18:01 DC 09/26/21 18:07 92 ML Ketorolac Tromethamine 30 mg ONCE ONCE IVP 09/26/21 19:45 09/26/21 19:46 DC 09/26/21 19:51 30 MG Lactated Ringer's 1,000 ml @ 0 mls/hr Q0M ONCE IV 09/26/21 17:15 09/26/21 17:16 DC 09/26/21 17:20 1,000 MLS/HR Sodium Chloride 100 ml ONCE ONCE IV 09/26/21 18:00 09/26/21 18:01 DC 09/26/21 18:08 80 ML Vital Signs/I&O 09/26/21 09/26/21 16:11 18:15 Temp 36.0 36.0 Pulse 75 Resp 18 B/P (MAP) 117/93 (101) Pulse Ox 98 O2 Delivery Room Air Blood Pressure Mean: 101 Departure Impression Primary Impression: Urinary tract infection Qualified Codes: N39.0 - Urinary tract infection, site not specified Additional Impressions: Right lower quadrant pain Nausea & vomiting Qualified Codes: R11.2 - Nausea with vomiting, unspecified Disposition: HOME, SELF-CARE Condition: Improved Departure-Patient Inst. Decision time for Depature: 19:44 Referrals: FABIENNE BAUTISTA MD (PCP/Family) Primary Care Physician Patient Instructions: Severe Abdominal Pain, Adult (DC), Urinary Tract Infection, Adult ED Add. Discharge Instructions: The exact cause of your abdominal pain is uncertain but may be related to your bladder infection. Please return to the emergency room if you have escalating pain or develop other symptoms such as fever despite following these instructions. Complete your antibiotic as prescribed. Please started on Tuesday if possible. Use Zofran (ondansetron) as prescribed for nausea and vomiting. For pain you may take Tylenol (acetaminophen) up to 1000 mg every 6 hours as needed and/or ibuprofen up to 600 mg every 6 hours as needed. Drink plenty of clear liquids to stay well-hydrated. Review urine culture results with your primary care provider on Tuesday or Tuesday. All discharge instructions reviewed with patient and/or family. Voiced understanding. Scripts Cephalexin (Cephalexin) 500 Mg Tablet 500 MG PO TID, #20 TAB Prov: SAMEER PUGH MD 09/26/21 Ondansetron (Ondansetron Odt) 4 Mg Tab.rapdis 4 MG SL Q4H PRN for NAUSEA/VOMITING, #10 TAB Prov: SAMEER PUGH MD 09/26/21 Work/School Note: Work Release Form Date Seen in the Emergency Department: Sep 26, 2021 Return to Work: Sep 28, 2021 Restrictions: Return-No Fever (24hrs), Return-No Vomiting(24hrs) SAMEER PUGH MD Sep 26, 2021 19:46
[2021-09-26 20:16] VITALS: BP 122/80
== END 2021-09-26 20:16 | disposition home or self-care (01) ==
LOC: EDUNIT# 16:07 → ER 16:09
DX: N39.0 Urinary tract infection, site not specified (principal); R11.2 Nausea with vomiting, unspecified; F17.210 Nicotine dependence, cigarettes, uncomplicated
CPT/HCPCS: 36415; 74177; 80053; 81000; 83690; 84703; 85025; 86141; 87077; 87088; 87186

== ENCOUNTER 2021-11-28 23:25 | Emergency (ER) | payer MEDICAID ==
[~2021-11-28] VITALS: Ht 170.2 cm; Wt 79.3 kg
[~2021-11-28 23:25] MED LIST changes: +CEPH500T PO; +ONDA4TAB11 SL
--- NOTE | 2021-11-28 23:40 | ED EENT ---
History of Present Illness General Stated Complaint: INGESTED BLEACH,N/V Source: patient Exam Limitations: no limitations History of Present Illness Date Seen by Provider: Nov 28, 2021 Time Seen by Provider: 23:29 Initial Comments Patient to the ER by private conveyance from home with chief complaint of doing laundry about 10 minutes ago and some bleach splashed back up into her mouth. She says she panicked and induced vomiting a couple times. She is rinsed her mouth out with water. She is not having any pain or bleeding in her mouth or throat. She does not have any nausea now. She wants to be checked out. She has not called poison control yet. Allergies and Home Medications Allergies Coded Allergies: latex (Verified Allergy, Unknown, 01/01/17) Uncoded Allergies: peanut butter (Allergy, Unknown, 01/01/17) Patient Home Medication List Home Medication List Reviewed: Yes Cephalexin (Cephalexin) 500 Mg Tablet, 500 MG PO TID Prescribed by: SAMEER LEAL on 09/26/211945 Ondansetron (Ondansetron Odt) 4 Mg Tab.rapdis, 4 MG SL Q4H PRN for NAUSEA/VOMITING Prescribed by: SAMEER LEAL on 09/26/211945 Sulfamethoxazole/Trimethoprim (Bactrim Ds Tablet) 1 Each Tablet, 1 EACH PO BID Prescribed by: MARTHA CASTRO on 02/11/182114 Review of Systems Review of Systems Constitutional: No chills, No diaphoresis Eyes: Denies Blindness, Denies Blurred Vision Ears: Denies Dizziness, Denies Pain Nose: denies clots, denies congestion Mouth: see HPI; denies clots, denies pain, denies swelling, denies bloody discharge, denies clear discharge Throat: denies pain, denies swelling All Other Systems Reviewed Negative Unless Noted: Yes Past Yhqwqok-Aohvcd-Kikocx Hx Patient Social History Tobacco Use?: No Use of E-Cig and/or Vaping dev: No Substance use?: No Immunizations Up To Date Tetanus Booster (TDap): Unknown PED Vaccines UTD: Yes Seasonal Allergies Seasonal Allergies: No Past Medical History Surgeries: No Respiratory: No Cardiac: No Neurological: No Female Reproductive Disorders: Denies Sexually Transmitted Disease: No HIV/AIDS: No Genitourinary: No Gastrointestinal: No Musculoskeletal: No Endocrine: No HEENT: No Loss of Vision: Denies Hearing Impairment: Denies Cancer: No Psychosocial: Yes Anxiety, Depression Integumentary: No Blood Disorders: No Adverse Reaction/Blood Tranf: No Family Medical History Arthritis MATERNAL GRANDMOTHER Asthma MATERNAL GRANDMOTHER Completed stroke MATERNAL GRANDFATHER Diabetes mellitus MATERNAL GRANDMOTHER MATERNAL GRANDFATHER (IDDM TYPE 2) Drug abuse 19 FATHER Hypertension MATERNAL GRANDMOTHER MATERNAL GRANDFATHER Psychosocial problem G8 BROTHER (BIPOLAR) SIDS (sudden syndrome) G8 BROTHER (1 MONTH OLD) MATERNAL COUSIN (MATERNAL COUSIN HAD A CHILD OF SIDS (6 WEEKS OLD)) Physical Exam Height, Weight, BMI Height: 5'7.00" Weight: 190lbs. 0oz. 86.672569ly; 24.00 BMI Method:Stated General Appearance: WD/WN, mild distress Eyes: bilateral eye normal inspection, bilateral eye PERRL, bilateral eye EOMI Ears: bilateral ear auricle normal, bilateral ear canal normal Nose: normal inspection; No active bleeding, No discharge, No dried blood Mouth/Throat: No dental tenderness, No excessive drooling; other (Excessive den jerry caries but no lesions, peacock, bleeding, erosions or abrasions.) Progress/Results/Core Measures Progress Progress Note #1: Time: 23:36 Progress Note At the point of most concentrated bleach exposure in the mouth there is no evidence of peacock or chemical peacock. The patient's not having any pain or bleeding now. We did discuss the case with toxicology at [facility]. Poison control recommends that we do not necessarily need to observe her. Typically they would do a p.o. fluid challenge after rinsing the mouth out with some water. If she can tolerate that is not having any other symptoms they would not even recommend to go to the ER. Poison control said we can discharge her now or if we need to observe her for short amount of time to help with her anxiety that is acceptable as well. Progress Note #2: Time: 23:48 Progress Note Patient is feeling better. She is taking some p.o. fluids without difficulty. She still not having any pain. Her anxiety has abated. She says she is ready to go home. We will provide her with return precautions and the phone number to poison control. Departure Impression Primary Impression: Accidental exposure to bleach Disposition: 01 HOME, SELF-CARE Condition: Stable Departure-Patient Inst. Decision time for Depature: 23:48 Referrals: FABIENNE BAUTISTA MD (PCP/Family) Primary Care Physician Patient Instructions: Chemical Ingestion (DC) Add. Discharge Instructions: As long as you are able to drink water and keep it down and you are not having severe pain or other worrisome symptoms then you will probably be just fine. If you are having any concerning symptoms then call poison control at . ASHELY ALLEN Nov 28, 2021 23:40
[2021-11-28 23:50] VITALS: BP 136/76
== END 2021-11-28 23:50 | disposition home or self-care (01) ==
LOC: EDUNIT# 23:25 → ER 23:26
DX: Z77.098 Contact with and (suspected) exposure to other hazardous, chiefly nonmedicinal, chemicals (principal); Z91.040 Latex allergy status
CPT/HCPCS: 99283

== ENCOUNTER 2021-11-29 14:40 | Emergency (ER) | payer MEDICAID ==
[~2021-11-29] VITALS: Ht 170 cm; Wt 79.0 kg
[2021-11-29 14:45] VITALS: BP 113/81
--- NOTE | 2021-11-29 15:22 | ED General ---
General Chief Complaint: General Problems/Pain Stated Complaint: ACCIDENTAL INGESTION OF BLEACH Nursing Triage Note: WAS SEEN YESTERDAY AFTER BLEACHED SPLASHED INTO HER MOUTH. PT STATES SHE THINKS A COUPLE OF DROPS LANDED ON HER TONGUE. PT CONTINUES TO COMPLAIN OF THROAT PAIN. Source of Information: Patient Exam Limitations: No Limitations History of Present Illness Date Seen by Provider: Nov 29, 2021 Time Seen by Provider: 15:09 Initial Comments This is a well-appearing 26-year-old female who presented to the ER for complaints of throat pain. States that she was evaluated and treated yesterday here in the ER for bleach exposure. She had a "couple drops of bleach splashed into her mouth" yesterday and feels that she may have some sort of reaction from this. Did not call poison control prior to arrival. Has not had any other or additional exposures to bleach. States that she has 1 spot in the center of her throat that hurts, also states that this could be related to her 1 episode of emesis yesterday. No fever, chills, cough, shortness of breath, nausea, vo miting, diarrhea, abdominal pain today. Allergies and Home Medications Allergies Coded Allergies: latex (Verified Allergy, Unknown, 01/01/17) Uncoded Allergies: peanut butter (Allergy, Unknown, 01/01/17) Patient Home Medication List Home Medication List Reviewed: Yes Cephalexin (Cephalexin) 500 Mg Tablet, 500 MG PO TID Prescribed by: SAMEER LEAL on 09/26/211945 Ondansetron (Ondansetron Odt) 4 Mg Tab.rapdis, 4 MG SL Q4H PRN for NAUSEA/VOMITING Prescribed by: SAMEER LEAL on 09/26/211945 Sulfamethoxazole/Trimethoprim (Bactrim Ds Tablet) 1 Each Tablet, 1 EACH PO BID Prescribed by: MARTHA CASTRO on 02/11/182114 Review of Systems Review of Systems Constitutional: no symptoms reported EENTM: see HPI Respiratory: no symptoms reported Cardiovascular: no symptoms reported Gastrointestinal: no symptoms reported Genitourinary: no symptoms reported Musculoskeletal: no symptoms reported Skin: no symptoms reported Psychiatric/Neurological: No Symptoms Reported Hematologic/Lymphatic: No Symptoms Reported Past Wvxnmxz-Hrxlmc-Ivwicw Hx Patient Social History Tobacco Use?: Yes Smoking Status: Current Everyday Smoker Substance use?: No Alcohol Use?: No Immunizations Up To Date Tetanus Booster (TDap): Unknown PED Vaccines UTD: Yes Seasonal Allergies Seasonal Allergies: No Past Medical History Surgeries: No Respiratory: No Cardiac: No Neurological: No Female Reproductive Disorders: Denies Sexually Transmitted Disease: No HIV/AIDS: No Genitourinary: No Gastrointestinal: No Musculoskeletal: No Endocrine: No HEENT: No Loss of Vision: Denies Hearing Impairment: Denies Cancer: No Psychosocial: Yes Anxiety, Depression Integumentary: No Blood Disorders: No Adverse Reaction/Blood Tranf: No Family Medical History Arthritis MATERNAL GRANDMOTHER Asthma MATERNAL GRANDMOTHER Completed stroke MATERNAL GRANDFATHER Diabetes mellitus MATERNAL GRANDMOTHER MATERNAL GRANDFATHER (IDDM TYPE 2) Drug abuse 19 FATHER Hypertension MATERNAL GRANDMOTHER MATERNAL GRANDFATHER Psychosocial problem G8 BROTHER (BIPOLAR) SIDS (sudden syndrome) G8 BROTHER (1 MONTH OLD) MATERNAL COUSIN (MATERNAL COUSIN HAD A CHILD OF SIDS (6 WEEKS OLD)) Physical Exam Vital Signs Vital Signs - First Documented 11/29/21 14:45 Temp 36.3 Pulse 88 Resp 16 B/P (MAP) 113/81 (92) Pulse Ox 95 O2 Delivery Room Air Capillary Refill : Less Than 3 Seconds Height, Weight, BMI Height: 5'7.00" Weight: 190lbs. 0oz. 86.114004oz; 27.00 BMI Method:Stated General Appearance: No Apparent Distress, WD/WN Eyes: Bilateral Eye Normal Inspection, Bilateral Eye EOMI HEENT: PERRL/EOMI, Normal ENT Inspection, Pharynx Normal, Moist Mucous Membr anes; No Pharyngeal Erythema, No Tonsillar Exudate Neck: Full Range of Motion, Normal Inspection, Non Tender, Supple Respiratory: Lungs Clear, Normal Breath Sounds, No Accessory Muscle Use, No Respiratory Distress Cardiovascular: Regular Rate, Rhythm, No Murmur Extremity: Normal Inspection, Normal Range of Motion Neurologic/Psychiatric: Alert, Oriented x3, No Motor/Sensory Deficits, Normal Mood/Affect Skin: Normal Color, Warm/Dry Progress/Results/Core Measures Suspected Sepsis SIRS Temperature: Pulse: 88 Respiratory Rate: 16 Blood Pressure 113 /81 Mean: 92 Results/Orders Lab Results Laboratory Tests Test 11/29/21 15:34 Range/Units Group A Streptococcus Screen NEGATIVE NEGATIVE My Orders Orders - MARY,STORMY D [employer] Rapid Strep A Screen (11/29/21 15:15) Ketorolac Injection (Toradol Injection) (11/29/21 15:45) Medications Given in ED Current Medications Medications Dose Ordered Sig/Bee Route Start Time Stop Time Status Last Admin Dose Admin Ketorolac Tromethamine 30 mg ONCE ONCE IM 11/29/21 15:45 11/29/21 15:46 DC 11/29/21 15:47 30 MG Vital Signs/I&O 11/29/21 14:45 Temp 36.3 Pulse 88 Resp 16 B/P (MAP) 113/81 (92) Pulse Ox 95 O2 Delivery Room Air Capillary Refill : Less Than 3 Seconds Blood Pressure Mean: 92 Progress Note : Progress Note Called poison control to discuss any possibility of this being related to her exposure yesterday, states that there is absolutely no chance of this being caused from her couple drops of bleach yesterday. Patient denied any additional exposures. We will go ahead and swab her throat for strep today however this is most likely related to her episode of vomiting. Strep A-, given Toradol injection. Discharge plan of care reviewed and she is agreeable with plan. Departure Impression Primary Impression: Throat burning Disposition: HOME, SELF-CARE Condition: Stable Departure-Patient Inst. Decision time for Depature: 15:47 Referrals: FABIENNE BAUTISTA MD (PCP/Family) Primary Care Physician Patient Instructions: Sore Throat, Adult (DC) Add. Discharge Instructions: PLAN: 1. May take Tylenol or Ibuprofen as needed per package. 2. Follow up with your doctor for any persistent symptoms. 3. Return for any worsening or new symptoms. All discharge instructions reviewed with patient and/or family. Voiced understanding. Work/School Note: Work Release Form Date Seen in the Emergency Department: Nov 29, 2021 Return to Work: Nov 30, 2021 Restrictions: No Restrictions SCOOTER HERNANDEZ APRN Nov 29, 2021 15:22
[2021-11-29] MEDS ORDERED: KETOROLAC 30 MG/ML VIAL IM ONE (15:45)
== END 2021-11-29 16:02 | disposition home or self-care (01) ==
LOC: EDUNIT# 14:40 → ER 14:42
DX: T28.0XXA Burn of mouth and pharynx, initial encounter (principal); F17.200 Nicotine dependence, unspecified, uncomplicated; X58.XXXA Exposure to other specified factors, initial encounter
CPT/HCPCS: 87430; 99282

== ENCOUNTER 2022-03-01 16:13 | Emergency (ER) | payer SELFPAY ==
[~2022-03-01] VITALS: Ht 170.2 cm; Wt 77.1 kg
--- NOTE | 2022-03-01 17:07 | ED Syncope ---
General Chief Complaint: Dizziness/Syncope Stated Complaint: DIZZY/SHAKEY/NAUSEA/WEAKNESS Nursing Triage Note: PT AMB TO TRIAGE WITH COMPLAINT OF DIZZINESS, NAUSEA, AND WEAKNESS. STATES STARTED YESTERDAY. STATES SHE IS A WEAK LATE ON HER PERIOD. Source of Information: Patient Exam Limitations: No Limitations History of Present Illness Date Seen by Provider: Mar 01, 2022 Time Seen by Provider: 16:52 Initial Comments Patient to the ER by private conveyance with chief complaint that for the past 2 days every time she stands up she gets dizzy like she is going to pass out. She did have 1 episode of syncope before coming in. She also gets nauseated when she becomes dizzy. No history of this before. No history of POTS, Mnire's disease. No vertigo. No family history. No significant medical history. She does not take any medications or control. She is not having any pain nausea vomiting fevers chills cough shortness of air. Allergies and Home Medications Allergies Coded Allergies: latex (Verified Allergy, Unknown, 01/01/17) Uncoded Allergies: peanut butter (Allergy, Unknown, 01/01/17) Patient Home Medication List Home Medication List Reviewed: Yes Cephalexin (Cephalexin) 500 Mg Tablet, 500 MG PO TID Prescribed by: SAMEER LEAL on 09/26/211945 Ondansetron (Ondansetron Odt) 4 Mg Tab.rapdis, 4 MG SL Q4H PRN for NAUSEA/VOMITING Prescribed by: SAMEER LEAL on 09/26/211945 Sulfamethoxazole/Trimethoprim (Bactrim Ds Tablet) 1 Each Tablet, 1 EACH PO BID Prescribed by: MARTHA CASTRO on 02/11/182114 Review of Systems Constitutional: No chills, No diaphoresis EENTM: No ear discharge, No ear pain Respiratory: No cough, No short of breath Cardiovascular: No chest pain, No edema Gastrointestinal: No abdominal pain, No nausea, No vomiting Genitourinary: No discharge, No dysuria Musculoskeletal: No back pain, No joint pain All Other Systems Reviewed Negative Unless Noted: Yes Past Gonvtxa-Bxllgy-Xmoorf Hx Patient Social History Tobacco Use?: Yes Tobacco type used: Cigarettes Smoking Status: Current Everyday Smoker Use of E-Cig and/or Vaping dev: No Substance use?: No Alcohol Use?: No Pt feels they are or have been: No Immunizations Up To Date Tetanus Booster (TDap): Unknown PED Vaccines UTD: Yes Seasonal Allergies Seasonal Allergies: No Past Medical History Surgeries: No Respiratory: No Cardiac: No Neurological: No Female Reproductive Disorders: Denies Sexually Transmitted Disease: No HIV/AIDS: No Genitourinary: No Gastrointestinal: No Musculoskeletal: No Endocrine: No HEENT: No Loss of Vision: Denies Hearing Impairment: Denies Cancer: No Psychosocial: Yes Anxiety, Depression Integumentary: No Blood Disorders: No Adverse Reaction/Blood Tranf: No Family Medical History Arthritis MATERNAL GRANDMOTHER Asthma MATERNAL GRANDMOTHER Completed stroke MATERNAL GRANDFATHER Diabetes mellitus MATERNAL GRANDMOTHER MATERNAL GRANDFATHER (IDDM TYPE 2) Drug abuse 19 FATHER Hypertension MATERNAL GRANDMOTHER MATERNAL GRANDFATHER Psychosocial problem G8 BROTHER (BIPOLAR) SIDS (sudden syndrome) G8 BROTHER (1 MONTH OLD) MATERNAL COUSIN (MATERNAL COUSIN HAD A CHILD OF SIDS (6 WEEKS OLD)) Physical Exam Vital Signs Vital Signs - First Documented 03/01/22 16:17 Temp 36.7 Pulse 114 Resp 20 B/P (MAP) 125/83 (97) Pulse Ox 97 O2 Delivery Room Air Capillary Refill : Less Than 3 Seconds Height, Weight, BMI Height: 5'7.00" Weight: 190lbs. 0oz. [id number]; 26.00 BMI Method:Stated General Appearance: No Apparent Distress, WD/WN HEENT: PERRL/EOMI, Pharynx Normal, Moist Mucous Membranes Neck: Full Range of Motion, Normal Inspection Cardiovascular: Regular Rate, Rhythm, No Edema, Normal Peripheral Pulses Respiratory: Lungs Clear, Normal Breath Sounds, No Accessory Muscle Use, No Respiratory Distress Gastrointestinal: Normal Bowel Sounds, Non Tender, Soft Extremities: Normal Capillary Refill, Normal Inspection, No Pedal Edema Neurologic/Psychiatric: Alert, Oriented x3, No Motor/Sensory Deficits Cranial Nerves: Normal Hearing, Normal Speech, PERRL Motor/Sensory: No Motor Deficit, No Sensory Deficit Skin: Normal Color, Warm/Dry Progress/Results/Core Measures Results/Orders Lab Results Laboratory Tests Test 03/01/22 16:40 03/01/22 17:32 Range/Units White Blood Count 7.6 4.3-11.0 10^3/uL Red Blood Count 5.23 H 3.80-5.11 10^6/uL Hemoglobin 16.9 H 11.5-16.0 g/dL Hematocrit 48 35-52 % Mean Corpuscular Volume 92 80-99 fL Mean Corpuscular Hemoglobin 32 25-34 pg Mean Corpuscular Hemoglobin Concent 35 32-36 g/dL Red Cell Distribution Width 11.8 10.0-14.5 % Platelet Count 218 130-400 10^3/uL Mean Platelet Volume 12.5 H 9.0-12.2 fL Immature Granulocyte % (Auto) 0 % Neutrophils (%) (Auto) 60 42-75 % Lymphocytes (%) (Auto) 30 12-44 % Monocytes (%) (Auto) 7 0-12 % Eosinophils (%) (Auto) 3 0-10 % Basophils (%) (Auto) 1 0-10 % Neutrophils # (Auto) 4.6 1.8-7.8 10^3/uL Lymphocytes # (Auto) 2.3 1.0-4.0 10^3/uL Monocytes # (Auto) 0.5 0.0-1.0 10^3/uL Eosinophils # (Auto) 0.2 0.0-0.3 10^3/uL Basophils # (Auto) 0.0 0.0-0.1 10^3/uL Immature Granulocyte # (Auto) 0.0 0.0-0.1 10^3/uL Sodium Level 142 135-145 MMOL/L Potassium Level 4.0 3.6-5.0 MMOL/L Chloride Level 107 98-107 MMOL/L Carbon Dioxide Level 22 21-32 MMOL/L Anion Gap 13 5-14 MMOL/L Blood Urea Nitrogen 9 7-18 MG/DL Creatinine 0.74 0.60-1.30 MG/DL Estimat Glomerular Filtration Rate 113 BUN/Creatinine Ratio 12 Glucose Level 109 H 70-105 MG/DL Calcium Level 9.3 8.5-10.1 MG/DL Corrected Calcium 9.1 8.5-10.1 MG/DL Total Bilirubin 0.4 0.1-1.0 MG/DL Aspartate Amino Transf (AST/SGOT) 16 5-34 U/L Alanine Aminotransferase (ALT/SGPT) 17 0-55 U/L Alkaline Phosphatase 63 40-136 U/L C-Reactive Protein High Sensitivity 0.03 0.00-0.50 MG/DL Total Protein 7.3 6.4-8.2 GM/DL Albumin 4.2 3.2-4.5 GM/DL Urine Color YELLOW Urine Clarity CLEAR Urine pH 7.0 5-9 Urine Specific [place] 1.025 H 1.016-1.022 Urine Protein NEGATIVE NEGATIVE Urine Glucose (UA) NEGATIVE NEGATIVE Urine Ketones NEGATIVE NEGATIVE Urine Nitrite NEGATIVE NEGATIVE Urine Bilirubin NEGATIVE NEGATIVE Urine Urobilinogen 2.0 < = 1.0 MG/DL Urine Leukocyte Esterase NEGATIVE NEGATIVE Urine RBC (Auto) NEGATIVE NEGATIVE Urine RBC RARE /HPF Urine WBC 0-2 /HPF Urine Squamous Epithelial Cells 5-10 /HPF Urine Crystals PRESENT H /LPF Urine Amorphous Sediment MOD PERFECTO PHOSPHATE H /LPF Urine Bacteria FEW H /HPF Urine Casts NONE /LPF Urine Mucus SMALL H /LPF Urine Culture Indicated NO My Orders Orders - ASHELY ALLEN Orthostatic Vital Signs (Adult (03/01/22 17:00) Cbc With Automated Diff (03/01/22 17:00) Comprehensive Metabolic Panel (03/01/22 17:00) Hs C Reactive Protein (03/01/22 17:00) Ua Culture If Indicated (03/01/22 17:00) Urine Bedside (03/01/22 17:00) Ed Iv/Invasive Line Start (03/01/22 17:29) Lactated Ringers (Lr 1000 Ml Iv Solution (03/01/22 17:30) Medications Given in ED Current Medications Medications Dose Ordered Sig/Bee Route Start Time Stop Time Status Last Admin Dose Admin Lactated Ringer's 1,000 ml @ 0 mls/hr Q0M ONCE IV 03/01/22 17:30 03/01/22 17:31 DC 03/01/22 17:36 1,000 MLS/HR Vital Signs/I&O 03/01/22 03/01/22 16:17 17:19 Temp 36.7 Pulse 114 82 94 124 Resp 20 B/P (MAP) 125/83 (97) 112/82 (92) 115/89 (98) 117/84 (95) Pulse Ox 97 O2 Delivery Room Air Blood Pressure Mean: 97 Progress Progress Note #1: Time: 17:07 Progress Note Patient appears nonacute, aseptic vital signs. She describes orthostasis so we will check orthostatic hypotension vital signs give her a liter of fluids and check some labs and urine as well as a test. Progress Note #2: Time: 18:22 Progress Note After liter of fluids the patient feels better. She is not having the tachycardia. Suspect POTS. We will have her stay hydrated and follow-up with primary care. Departure Impression Primary Impression: POTS (postural orthostatic tachycardia syndrome) Disposition: 01 HOME, SELF-CARE Condition: Stable Departure-Patient Inst. Decision time for Depature: 18:23 Referrals: FABIENNE BAUTISTA MD (PCP/Family) Primary Care Physician Patient Instructions: Tachycardia (DC) Add. Discharge Instructions: Make sure you are drinking plenty of fluids. This is a syndrome that can come and go and can cause you to have a rapid heart rate if you have been lying or sitting for a long time and stand up abruptly. Becoming dehydrated will worsen the syndrome but does not cause it. Follow-up with primary care if you need help managing your symptoms. All discharge instructions reviewed with patient and/or family. Voiced understanding. Work/School Note: Work Release Form Date Seen in the Emergency Department: Mar 01, 2022 Return to Work: Mar 02, 2022 Restrictions: No Restrictions ASHELY ALLEN Mar 01, 2022 17:07
[2022-03-01 17:08] LABS: BASOPHILS % (AUTO) 1 % (0-10); EOSINOPHILS # (AUTO) 0.2 10^3/uL (0.0-0.3); EOSINOPHILS % (AUTO) 3 % (0-10); HEMATOCRIT 48 % (35-52); HEMOGLOBIN 16.9 g/dL (11.5-16.0); LYMPHOCYTES # (AUTO) 2.3 10^3/uL (1.0-4.0); LYMPHOCYTES % (AUTO) 30 % (12-44); MEAN CORPUSCULAR HEMOGLOBIN 32 pg (25-34); MEAN CORPUSCULAR HGB CONC 35 g/dL (32-36); MEAN CORPUSCULAR VOLUME 92 fL (80-99); MEAN PLATELET VOLUME 12.5 fL (9.0-12.2); MONOCYTES # (AUTO) 0.5 10^3/uL (0.0-1.0); MONOCYTES % (AUTO) 7 % (0-12); NEUTROPHILS # (AUTO) 4.6 10^3/uL (1.8-7.8); NEUTROPHILS % (AUTO) 60 % (42-75); PLATELET COUNT 218 10^3/uL (130-400); WHITE BLOOD COUNT 7.6 10^3/uL (4.3-11.0)
[2022-03-01 17:10] LABS: ALBUMIN 4.2 GM/DL (3.2-4.5)
[2022-03-01 17:11] LABS: CALCIUM 9.3 MG/DL (8.5-10.1)
[2022-03-01 17:13] LABS: TOTAL PROTEIN 7.3 GM/DL (6.4-8.2)
[2022-03-01 17:14] LABS: BILIRUBIN,TOTAL 0.4 MG/DL (0.1-1.0)
[2022-03-01 17:16] LABS: CREATININE SERUM 0.74 MG/DL (0.60-1.30)
[2022-03-01 17:19] VITALS: BP_SYST 112; BP_SYST 115; BP_SYST 117; BP_DIAS 82; BP_DIAS 84; BP_DIAS 89
[2022-03-01] MEDS ORDERED: LACTATED RINGERS 1,000 ML IV ONE (17:30)
[2022-03-01 17:45] LABS: BILIRUBIN,URINE NEGATIVE (NEGATIVE); CLARITY,URINE CLEAR; COLOR,URINE YELLOW; GLUCOSE, URINE (UA) NEGATIVE (NEGATIVE); KETONES,URINE NEGATIVE (NEGATIVE); LEUKOCYTE ESTERASE ,URINE NEGATIVE (NEGATIVE); NITRITE,URINE NEGATIVE (NEGATIVE); PROTEIN,URINE NEGATIVE (NEGATIVE)
[2022-03-01 18:12] LABS: AMORPHOUS SEDIMENT,UR MOD AMOR PHOSPHATE /LPF; BACTERIA,URINE FEW /HPF; RBC,URINE RARE /HPF; WBC,URINE 0-2 /HPF
[2022-03-01 18:30] VITALS: BP 128/101
== END 2022-03-01 18:30 | disposition home or self-care (01) ==
LOC: EDUNIT# 16:13 → ER 16:15
DX: I49.8 Other specified cardiac arrhythmias (principal); F17.210 Nicotine dependence, cigarettes, uncomplicated; Z91.040 Latex allergy status
CPT/HCPCS: 36415; 80053; 81000; 84703; 85025; 86141